=== PATIENT | male | born 1950 | race Caucasian/White ===

== ENCOUNTER 2022-12-09 04:09 | Emergency (ER) | payer MEDICARE ==
[2022-12-09 04:16] VITALS: BP 180/90
[2022-12-09] MEDS ORDERED: LORA-250 PO (05:42)
[2022-12-09 06:04] VITALS: PULSE 90; RESP 18; TEMP 98.4
== END 2022-12-09 06:05 | disposition home or self-care (01) ==
LOC: ER 04:09
DX: Z76.0 Encounter for issue of repeat prescription (principal)
CPT/HCPCS: 99283